=== PATIENT | female | born 1945 | race American Indian/Alaskan Native ===

== ENCOUNTER 2020-09-22 13:29 | Inpatient (IN) | payer OTHER ==
[2020-09-22] MEDS ORDERED: ACETAMINOPHEN 650 MG RECT SUPP PR ONE (13:35)
[2020-09-22] MEDS ORDERED: SODIUM CHLORIDE 0.9% 1000 ML 1,000 ML IV ONE ×3 (13:35→18:37)
--- NOTE | 2020-09-22 13:38 | Emergency Department Report ---
ED Fever HPI - General Stated Complaint: AMS/SEPSIS Time Seen by Provider: 09/22/20 13:33 Source: family, EMS, old records (none available) Exam Limitations: clinical condition - History of Present Illness Initial Comments: 75-year-old presents to the hospital with complaints of alteration in mental status and fever. Patient has a past medical history of dementia, hypertension, and also independent diabetes. She is from [facility] and [id number]. History of present illness obtained from family and EMS. Daughter states that patient was recently admitted to [facility] for 5 days for urinary retention, sepsis, and acute kidney injury. Patient had urine output after Pérez catheter placement into their knowledge kidney function had improved at time of discharge. She was discharged from [facility] 6 days ago without additional antibiotic and with Pérez catheter in place. She continues to have intermittent bloody urine output. She followed up with urology 3 days ago and has a scheduled follow-up for Pérez removal and additional bladder work-up. Patient also has been having intermittent vaginal bleeding and has been diagnosed with cervical polyp. She is scheduled for outpatient NUCLEAR REACTOR ENGINEER work-up. No complaints of heavy vaginal bleeding at this time. Patient was speaking upon waking up at about 9 AM. Upon recheck patient was not speaking but will squeeze her family members hands. EMS reports fever, tachycardia rate 116 on the monitor, and no signs of hypotension, room air saturation of 92% (supplemental oxygen in progress), and normal blood glucose level. No previous medical record for review. I Initially saw patient in triage and place orders while awaiting ED bed assignment. Family reports last Covid test was negative in July 2020 and she was not tested for Covid this month or during this recent admission. I received discharge summary and meds from patient and place her current medications in the computer ED Review of Systems ROS: Stated complaint: AMS/SEPSIS Other details as noted in HPI Comment: Unobtainable due to pts medical conditions ED Past Medical Hx - Past Medical History Hx Hypertension: Yes Hx Diabetes: Yes Hx Renal Disease: Yes (AKA status post urinary retention) Hx Dementia: Yes Additional medical history: Urinary retention, vaginal bleeding/cervical polyp - Medications Home Medications: Home Medications Medication Instructions Recorded Confirmed Last Taken Type Amlodipine Besylate [Norvasc] 2.5 mg PO DAILY 09/22/20 09/22/20 Unknown History Dok 100 mg PO DAILY PRN 09/22/20 09/22/20 Unknown History Melatonin 10MG CAP 1 tab PO QHS 09/22/20 09/22/20 Unknown History Vitamin D3 5,000 UNIT 1 tab PO DAILY 09/22/20 09/22/20 Unknown History metFORMIN 500 mg PO BID 09/22/20 09/22/20 Unknown History traZODone [Desyrel] 50 mg PO QHS 09/22/20 09/22/20 Unknown History ED Physical Exam - Other Other exam information: General: No acute distress Head: Atraumatic Eyes: normal appearance ENT: Dry mucous membranes Neck: Normal appearance, no midline tenderness Chest: Bilateral rhonchi CV: Tachycardic regular rhythm Abdomen: Soft, normal bowel sounds, nontender, nondistended, no rebound or guarding Back: Normal inspection Extremity: Normal inspection, full range of motion Neuro: Alert, , no facial asymmetry, speech clear, no gross motor sensory deficit Psych: Appropriate behavior Skin: No rash ED Course Vital Signs 09/22/20 09/22/20 14:30 15:49 Temperature 99.3 F Pulse Rate 87 84 Respiratory 16 16 Rate Blood Pressure 108/63 97/63 [Right] O2 Sat by Pulse 97 96 Oximetry ED Medical Decision Making - Lab Data Result diagrams: 09/22/20 13:45 09/22/20 13:45 Lab Results 09/22/20 09/22/20 09/22/20 Range/Units 13:45 13:45 13:45 WBC 9.8 (4.5-11.0) K/mm3 RBC 4.60 (3.65-5.03) M/mm3 Hgb 12.4 (10.1-14.3) gm/dl Hct 38.4 (30.3-42.9) % MCV 84 (79-97) fl MCH 27 L (28-32) pg MCHC 32 (30-34) % RDW 14.2 (13.2-15.2) % Plt Count 254 (140-440) K/mm3 Lymph % (Auto) 16.2 (13.4-35.0) % [place] % (Auto) 8.0 H (0.0-7.3) % Eos % (Auto) 0.1 (0.0-4.3) % Baso % (Auto) 0.5 (0.0-1.8) % Lymph # (Auto) 1.6 (1.2-5.4) K/mm3 [place] # (Auto) 0.8 (0.0-0.8) K/mm3 Eos # (Auto) 0.0 (0.0-0.4) K/mm3 Baso # (Auto) 0.0 (0.0-0.1) K/mm3 Seg Neutrophils % 75.2 H (40.0-70.0) % Seg Neutrophils # 7.4 (1.8-7.7) K/mm3 Sodium 150 H (137-145) mmol/L Potassium 3.9 (3.6-5.0) mmol/L Chloride 113.7 H (98-107) mmol/L Carbon Dioxide 25 (22-30) mmol/L Anion Gap 15 mmol/L BUN 21 H (7-17) mg/dL Creatinine 1.5 H (0.6-1.2) mg/dL Estimated GFR 41 ml/min BUN/Creatinine Ratio 14 % Glucose 128 H (65-100) mg/dL Lactic Acid 1.10 (0.7-2.0) mmol/L Calcium 8.4 (8.4-10.2) mg/dL Total Bilirubin 0.50 (0.1-1.2) mg/dL AST 16 (5-40) units/L ALT 19 (7-56) units/L Alkaline Phosphatase 50 (35-129) units/L Total Protein 6.1 L (6.3-8.2) g/dL Albumin 3.3 L (3.9-5) g/dL Albumin/Globulin Ratio 1.2 % TSH (0.270-4.200) mlU/mL Free T4 (0.76-1.46) ng/dL Urine Color (Yellow) Urine Turbidity (Clear) Urine pH (5.0-7.0) Ur Specific [place] (1.003-1.030) Urine Protein (Negative) mg/dL Urine Glucose (UA) (Negative) mg/dL Urine Ketones (Negative) mg/dL Urine Blood (Negative) Urine Nitrite (Negative) Urine Bilirubin (Negative) Urine Urobilinogen (<2.0) mg/dL Ur Leukocyte Esterase (Negative) Urine WBC (Auto) (0.0-6.0) /HPF Urine RBC (Auto) (0.0-6.0) /HPF U Epithel Cells (Auto) (0-13.0) /HPF Urine WBC Clumps /HPF Ur Renal Epithelial Cell /LPF Urine Mucus /HPF 09/22/20 09/22/20 Range/Units 13:45 15:20 WBC (4.5-11.0) K/mm3 RBC (3.65-5.03) M/mm3 Hgb (10.1-14.3) gm/dl Hct (30.3-42.9) % MCV (79-97) fl MCH (28-32) pg MCHC (30-34) % RDW (13.2-15.2) % Plt Count (140-440) K/mm3 Lymph % (Auto) (13.4-35.0) % [place] % (Auto) (0.0-7.3) % Eos % (Auto) (0.0-4.3) % Baso % (Auto) (0.0-1.8) % Lymph # (Auto) (1.2-5.4) K/mm3 [place] # (Auto) (0.0-0.8) K/mm3 Eos # (Auto) (0.0-0.4) K/mm3 Baso # (Auto) (0.0-0.1) K/mm3 Seg Neutrophils % (40.0-70.0) % Seg Neutrophils # (1.8-7.7) K/mm3 Sodium (137-145) mmol/L Potassium (3.6-5.0) mmol/L Chloride (98-107) mmol/L Carbon Dioxide (22-30) mmol/L Anion Gap mmol/L BUN (7-17) mg/dL Creatinine (0.6-1.2) mg/dL Estimated GFR ml/min BUN/Creatinine Ratio % Glucose (65-100) mg/dL Lactic Acid (0.7-2.0) mmol/L Calcium (8.4-10.2) mg/dL Total Bilirubin (0.1-1.2) mg/dL AST (5-40) units/L ALT (7-56) units/L Alkaline Phosphatase (35-129) units/L Total Protein (6.3-8.2) g/dL Albumin (3.9-5) g/dL Albumin/Globulin Ratio % TSH 0.711 (0.270-4.200) mlU/mL Free T4 1.06 (0.76-1.46) ng/dL Urine Color Yellow (Yellow) Urine Turbidity Cloudy (Clear) Urine pH 5.0 (5.0-7.0) Ur Specific [place] 1.011 (1.003-1.030) Urine Protein <15 mg/dl (Negative) mg/dL Urine Glucose (UA) Neg (Negative) mg/dL Urine Ketones Neg (Negative) mg/dL Urine Blood Mod (Negative) Urine Nitrite Neg (Negative) Urine Bilirubin Neg (Negative) Urine Urobilinogen < 2.0 (<2.0) mg/dL Ur Leukocyte Esterase Lg (Negative) Urine WBC (Auto) 68.0 H (0.0-6.0) /HPF Urine RBC (Auto) 16.0 (0.0-6.0) /HPF U Epithel Cells (Auto) < 1.0 (0-13.0) /HPF Urine WBC Clumps 3+ /HPF Ur Renal Epithelial Cell 1 /LPF Urine Mucus Few /HPF - EKG Data EKG shows normal: sinus rhythm, ST-T waves (no stemi) Rate: normal (79) - Radiology Data Radiology results: report reviewed CT head: Cerebral atrophy and microangiopathic changes. No acute findings Chest x-ray portable: No acute findings - Medical Decision Making 75-year-old female presents to the hospital febrile alteration mental status. Fever likely secondary to persistent UTI. Patient presented with indwelling Pérez catheter. Pérez catheter was exchanged for a new indwelling catheter and UA sent revealed active UTI. IV Rocephin ordered blood cultures pending. no signs of severe sepsis or septic shock at this time. Map remained >65 with no lactic acidosis. Patient also has clinical laboratory findings of dehydration and IV fluids were initiated. CT head and chest x-ray unremarkable. Patient to be admitted to the hospital service for further treatment. Critical Care Time: No Critical care attestation.: If time is entered above; I have spent that time in minutes in the direct care of this critically ill patient, excluding procedure time. ED Disposition Clinical Impression: Acute alteration in mental status, Fever, Sepsis, UTI (urinary tract infection), H/O urinary retention, Pérez catheter in place prior to arrival, Dementia, History of hypertension, History of diabetes mellitus Disposition: OP ADMIT IP TO THIS HOSP Is pt being admited?: Yes Condition: Stable Time of Disposition: 17:12 (Dr Murray/hosp)
[2020-09-22] MEDS ORDERED: ACETAMINOPHEN 325 MG RECT SUPP PR ONE (14:12)
--- NOTE | 2020-09-22 14:20 | Cat Scan Report ---
CT head/brain wo con INDICATION / CLINICAL INFORMATION: ams, fever. TECHNIQUE: All CT scans at this location are performed using CT dose reduction for ALARA by means of automated e xposure control. COMPARISON: None available. FINDINGS: Ventricle size is increased consistent with cerebral atrophy. Microangiopathic changes are also seen. No mass or mass effect is identified. There is no evidence of intracranial hemorrhage. No obvious ar ea of infarction is identified. Visualized paranasal sinuses are clear. IMPRESSION: Cerebral atrophy with microangiopathic changes. No acute findings Signer Name: Taras Lentz MD FACR Signed: 09/22/2020 2:15 PM Workstation Name: [id number]
--- NOTE | 2020-09-22 14:29 | XRay Report ---
CHEST 1 VIEW INDICATION / CLINICAL INFORMATION: sepsis, fever. COMPARISON: None available. FINDINGS: SUPPORT DEVICES: None. HEART / MEDIASTINUM: No significant abnormality. LUNGS / PLEURA: No significant pulmonary or pleural abnormality. No pneumothorax. ADDITIONAL FINDINGS: No significant additional findings. IMPRESSION: No acute pulmonary or pleural abnormality Signer Name: Taras Lentz MD FACR Signed: 09/22/2020 2:24 PM Workstation Name: [id number]
[2020-09-22 14:35] LABS: Albumin 3.3 g/dL (3.9-5); Calcium 8.4 mg/dL (8.4-10.2)
[2020-09-22 14:46] LABS: Free T4 (Free Thyroxine) 1.06 ng/dL (0.76-1.46)
[2020-09-22 14:57] LABS: Basophils % (Auto) 0.5 % (0.0-1.8); Eosinophils % (Auto) 0.1 % (0.0-4.3); Hematocrit 38.4 % (30.3-42.9); Hemoglobin 12.4 gm/dl (10.1-14.3); Lymphocytes # (Auto) 1.6 K/mm3 (1.2-5.4); Lymphocytes % (Auto) 16.2 % (13.4-35.0); Mean Corpuscular HGB Conc 32 % (30-34); Mean Corpuscular Volume 84 fl (79-97); Monocytes # (Auto) 0.8 K/mm3 (0.0-0.8); Platelet Count 254 K/mm3 (140-440); Red Cell Distribution Width 14.2 % (13.2-15.2)
[2020-09-22 16:20] LABS: Bilirubin,Urine NEG (Negative); Blood,Urine MOD (Negative); Color,Urine Yellow (Yellow); Mucus,Urine FEW /HPF; Protein,Urine <15 mg/dL mg/dL (Negative); Renal Epithelial Cells,Urine 1 /LPF; Urobilinogen,Urine < 2.0 mg/dL (<2.0)
[2020-09-22] MEDS ORDERED: cefTRIAXone/NS 1 GM/50 ML 1 GM/50 ML BAG IV ONE (17:00)
[2020-09-23] MEDS ORDERED: ONDANSETRON 4 MG/2 ML INJ IV PRN (00:06)
[2020-09-23] MEDS ORDERED: HYDROmorphone 1 MG/1 ML INJ IV PRN (00:06)
[2020-09-23] MEDS ORDERED: oxyCODONE /ACETAMINOPHEN 5-325MG TAB PO PRN (00:06)
[2020-09-23] MEDS ORDERED: ACETAMINOPHEN 325 MG TAB PO PRN (00:06)
[2020-09-23] MEDS ORDERED: SODIUM CHLORIDE 0.9% 1000 ML 1,000 ML IV SCH (00:15)
--- NOTE | 2020-09-23 00:17 | History and Physical Report ---
History of Present Illness Date of examination: 09/22/20 Date of admission: 09/22/20 17:13 Chief complaint: Fever and altered mental status for 1 day History of present illness: 75-year-old -[place] female with history of dementia, hypertension and type 2 diabetes brought in by EMS for altered sensorium and fever. Patient was recently admitted to [facility] for 5 days for urinary retention sepsis and acute kidney injury. Patient was treated for urinary tract infection and MATTHIAS and was discharged 6 days ago after full 5 days of admission. She followed up with urology 3 days ago and has a scheduled follow-up for Pérez removal. Patient also has been having intermittent vaginal bleeding and has been diagnosed with cervical polyp. She is scheduled for outpatient BOAT BUFFER PLASTIC work-up. No complaints of heavy vaginal bleeding at this time. Patient with altered sensorium since 9 AM this morning. Family reports last Covid test was negative in July 2020. Notes from [facility] was received and reviewed . - Past Medical History --Hypertension: Yes --Diabetes: Yes --Renal Disease: Yes - status post urinary retention) --Dementia: Yes Additional medical history: Urinary retention, vaginal bleeding/cervical polyp Past surgical history none Social history no smoking or alcohol - Medications Home Medications: Home Medications Medication Instructions Recorded Confirmed Last Taken Type Amlodipine Besylate [Norvasc] 2.5 mg PO DAILY 09/22/20 09/22/20 Unknown History Dok 100 mg PO DAILY PRN 09/22/20 09/22/20 Unknown History Melatonin 10MG CAP 1 tab PO QHS 09/22/20 09/22/20 Unknown History Vitamin D3 5,000 UNIT 1 tab PO DAILY 09/22/20 09/22/20 Unknown History metFORMIN 500 mg PO BID 09/22/20 09/22/20 Unknown History traZODone [Desyrel] 50 mg PO QHS 09/22/20 09/22/20 Unknown History Review of Systems ROS: Constitutional altered sensorium and fever HEENT no sore throat no post nasal drip no diplopia Neck no neck stiffness no lymph gland enlargement Chest and lungs no shortness of breath cough or wheezing CVS no chest pain no diaphoresis no palpitations GI no nausea no vomiting no diarrhea Genitourinary system no dysuria no flank pain Musculoskeletal system no muscle 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 Skin no rash no itching Psychiatric no depression no homicidal or suicidal tendencies Hematologic no lymphedema or bruising Endocrine no polydipsia no polyuria no cold intolerance no heat intolerance Medications and Allergies Allergies Allergy/AdvReac Type Severity Reaction Status Date / Time No Known Allergies Allergy Verified 09/22/20 14:15 Home Medications Medication Instructions Recorded Confirmed Last Taken Type Amlodipine Besylate [Norvasc] 2.5 mg PO DAILY 09/22/20 09/22/20 Unknown History Dok 100 mg PO DAILY PRN 09/22/20 09/22/20 Unknown History Melatonin 10MG CAP 1 tab PO QHS 09/22/20 09/22/20 Unknown History Vitamin D3 5,000 UNIT 1 tab PO DAILY 09/22/20 09/22/20 Unknown History metFORMIN 500 mg PO BID 09/22/20 09/22/20 Unknown History traZODone [Desyrel] 50 mg PO QHS 09/22/20 09/22/20 Unknown History Active Meds: Active Medications Sodium Chloride (Nacl 0.9% 1000 Ml) 1,000 mls @ 125 mls/hr IV ONCE ONE Stop: 09/23/20 02:36 Last Admin: 09/22/20 21:01 Dose: 125 mls/hr Documented by: Exam - Constitutional Vitals: Temp Pulse Resp BP Pulse Ox 98.7 F 69 20 136/77 99 09/22/20 19:40 09/22/20 19:40 09/22/20 19:40 09/22/20 19:40 09/22/20 19:40 General appearance: Present: no acute distress, well-nourished - EENT Eyes: Present: PERRL ENT: hearing intact, clear oral mucosa - Neck Neck: Present: supple, normal ROM - Respiratory Respiratory effort: normal Respiratory: bilateral: CTA - Cardiovascular Heart rate: 78 Rhythm: regular Heart Sounds: Present: S1 & S2. Absent: rub, click - Extremities Extremities: pulses symmetrical, No edema Peripheral Pulses: within normal limits - Abdominal General gastrointestinal: Present: soft, non-tender, non-distended, normal bowel sounds Female genitourinary: Present: normal - Integumentary Integumentary: Present: clear, warm, dry - Musculoskeletal Musculoskeletal: strength equal bilaterally, generalized weakness - Psychiatric Psychiatric: appropriate mood/affect, intact judgment & insight - Neurologic Neurologic: CNII-XII intact, moves all extremities, other (Altered sensorium and lethargic) HEART Score - HEART Score History: Slightly suspicious Age: > 65 Risk factors: 1-2 risk factors Troponin: < normal limit - Critical Actions Critical Actions: 0-3 pts:0.9-1.7%risk of adverse cardiac event.Candidate for discharge Results - Labs CBC & Chem 7: 09/22/20 13:45 09/22/20 13:45 Labs: Laboratory Last Values WBC 9.8 K/mm3 (4.5-11.0) 09/22/20 13:45 RBC 4.60 M/mm3 (3.65-5.03) 09/22/20 13:45 Hgb 12.4 gm/dl (10.1-14.3) 09/22/20 13:45 Hct 38.4 % (30.3-42.9) 09/22/20 13:45 MCV 84 fl (79-97) 09/22/20 13:45 MCH 27 pg (28-32) L 09/22/20 13:45 MCHC 32 % (30-34) 09/22/20 13:45 RDW 14.2 % (13.2-15.2) 09/22/20 13:45 Plt Count 254 K/mm3 (140-440) 09/22/20 13:45 Lymph % (Auto) 16.2 % (13.4-35.0) 09/22/20 13:45 [place] % (Auto) 8.0 % (0.0-7.3) H 09/22/20 13:45 Eos % (Auto) 0.1 % (0.0-4.3) 09/22/20 13:45 Baso % (Auto) 0.5 % (0.0-1.8) 09/22/20 13:45 Lymph # (Auto) 1.6 K/mm3 (1.2-5.4) 09/22/20 13:45 [place] # (Auto) 0.8 K/mm3 (0.0-0.8) 09/22/20 13:45 Eos # (Auto) 0.0 K/mm3 (0.0-0.4) 09/22/20 13:45 Baso # (Auto) 0.0 K/mm3 (0.0-0.1) 09/22/20 13:45 Seg Neutrophils % 75.2 % (40.0-70.0) H 09/22/20 13:45 Seg Neutrophils # 7.4 K/mm3 (1.8-7.7) 09/22/20 13:45 Sodium 150 mmol/L (137-145) H 09/22/20 13:45 Potassium 3.9 mmol/L (3.6-5.0) 09/22/20 13:45 Chloride 113.7 mmol/L (98-107) H 09/22/20 13:45 Carbon Dioxide 25 mmol/L (22-30) 09/22/20 13:45 Anion Gap 15 mmol/L 09/22/20 13:45 BUN 21 mg/dL (7-17) H 09/22/20 13:45 Creatinine 1.5 mg/dL (0.6-1.2) H 09/22/20 13:45 Estimated GFR 41 ml/min 09/22/20 13:45 BUN/Creatinine Ratio 14 % 09/22/20 13:45 Glucose 128 mg/dL (65-100) H 09/22/20 13:45 Lactic Acid 1.10 mmol/L (0.7-2.0) 09/22/20 16:19 Calcium 8.4 mg/dL (8.4-10.2) 09/22/20 13:45 Total Bilirubin 0.50 mg/dL (0.1-1.2) 09/22/20 13:45 AST 16 units/L (5-40) 09/22/20 13:45 ALT 19 units/L (7-56) 09/22/20 13:45 Alkaline Phosphatase 50 units/L (35-129) 09/22/20 13:45 Total Protein 6.1 g/dL (6.3-8.2) L 09/22/20 13:45 Albumin 3.3 g/dL (3.9-5) L 09/22/20 13:45 Albumin/Globulin Ratio 1.2 % 09/22/20 13:45 TSH 0.711 mlU/mL (0.270-4.200) 09/22/20 13:45 Free T4 1.06 ng/dL (0.76-1.46) 09/22/20 13:45 Urine Color Yellow (Yellow) 09/22/20 15:20 Urine Turbidity Cloudy (Clear) 09/22/20 15:20 Urine pH 5.0 (5.0-7.0) 09/22/20 15:20 Ur Specific [place] 1.011 (1.003-1.030) 09/22/20 15:20 Urine Protein <15 mg/dl mg/dL (Negative) 09/22/20 15:20 Urine Glucose (UA) Neg mg/dL (Negative) 09/22/20 15:20 Urine Ketones Neg mg/dL (Negative) 09/22/20 15:20 Urine Blood Mod (Negative) 09/22/20 15:20 Urine Nitrite Neg (Negative) 09/22/20 15:20 Urine Bilirubin Neg (Negative) 09/22/20 15:20 Urine Urobilinogen < 2.0 mg/dL (<2.0) 09/22/20 15:20 Ur Leukocyte Esterase Lg (Negative) 09/22/20 15:20 Urine WBC (Auto) 68.0 /HPF (0.0-6.0) H 09/22/20 15:20 Urine RBC (Auto) 16.0 /HPF (0.0-6.0) 09/22/20 15:20 U Epithel Cells (Auto) < 1.0 /HPF (0-13.0) 09/22/20 15:20 Urine WBC Clumps 3+ /HPF 09/22/20 15:20 Ur Renal Epithelial Cell 1 /LPF 09/22/20 15:20 Urine Mucus Few /HPF 09/22/20 15:20 Short CBC 09/22/20 Range/Units 13:45 WBC 9.8 (4.5-11.0) K/mm3 Hgb 12.4 (10.1-14.3) gm/dl Hct 38.4 (30.3-42.9) % Plt Count 254 (140-440) K/mm3 BMP 09/22/20 13:45 Sodium 150 H Potassium 3.9 Chloride 113.7 H Carbon Dioxide 25 BUN 21 H Creatinine 1.5 H Glucose 128 H Calcium 8.4 Liver Function 09/22/20 Range/Units 13:45 Total Bilirubin 0.50 (0.1-1.2) mg/dL AST 16 (5-40) units/L ALT 19 (7-56) units/L Alkaline Phosphatase 50 (35-129) units/L Albumin 3.3 L (3.9-5) g/dL Urine 09/22/20 Range/Units 15:20 Urine Color Yellow (Yellow) Urine pH 5.0 (5.0-7.0) Ur Specific [place] 1.011 (1.003-1.030) Urine Protein <15 mg/dl (Negative) mg/dL Urine Glucose (UA) Neg (Negative) mg/dL Microbiology: Microbiology 09/22/20 13:45 Peripheral/Venous Blood Culture - Preliminary Culture in Progress 09/22/20 13:45 Peripheral/Venous Blood Culture - Preliminary Culture in Progress - Imaging and Cardiology Chest x-ray: report reviewed (No acute findings) Pérez/IV: IV Catheter Type [Left Forearm Peripheral IV ] Assessment and Plan Advance Directives: Yes (Full code) VTE prophylaxis?: Chemical Plan of care discussed with patient/family: Yes - Patient Problems (1) Acute metabolic encephalopathy Current Visit: Yes Status: Acute Plan to address problem: Probably secondary to urinary tract infection and hypernatremia IV antibiotics and half-normal saline for now (2) UTI (urinary tract infection) Current Visit: Yes Status: Acute Qualifiers: Urinary tract infection type: acute cystitis Plan to address problem: Patient initiated on IV ceftriaxone pending urine cultures (3) Hypernatremia Current Visit: Yes Status: Acute Plan to address problem: Half-normal saline for now Secondary to dehydration (4) MATTHIAS (acute kidney injury) Current Visit: Yes Status: Acute Plan to address problem: Secondary to vasomotor nephropathy IV fluids for now (5) H/O urinary retention Current Visit: Yes Status: Acute Plan to address problem: Etiology unclear Urology consult requested (6) Dementia Current Visit: Yes Status: Chronic Qualifiers: Dementia type: Alzheimer's Plan to address problem: Supportive care (7) Malnutrition Current Visit: Yes Status: Chronic Qualifiers: Protein-calorie malnutrition severity: moderate Plan to address problem: Dietary supplements ordered (8) DVT prophylaxis Current Visit: Yes Status: Acute Plan to address problem: On heparin and GI prophylaxis
[2020-09-23] MEDS ORDERED: HEPARIN 5,000 UNIT/1 ML VIAL SUB-Q SCH (00:30)
[2020-09-23] MEDS ORDERED: SODIUM CHLORIDE 0.45% 500 ML IV SCH (01:00)
[2020-09-23 07:50] LABS: Basophils # (Auto) 0.1 K/mm3 (0.0-0.1); Basophils % (Auto) 0.5 % (0.0-1.8); Eosinophils # (Auto) 0.2 K/mm3 (0.0-0.4); Eosinophils % (Auto) 1.4 % (0.0-4.3); Hematocrit 36.3 % (30.3-42.9); Hemoglobin 11.5 gm/dl (10.1-14.3); Lymphocytes # (Auto) 2.8 K/mm3 (1.2-5.4); Lymphocytes % (Auto) 25.9 % (13.4-35.0); Mean Corpuscular HGB Conc 32 % (30-34); Mean Corpuscular Volume 84 fl (79-97); Monocytes % (Auto) 8.8 % (0.0-7.3); Platelet Count 226 K/mm3 (140-440); Red Blood Count 4.35 M/mm3 (3.65-5.03); Red Cell Distribution Width 14.3 % (13.2-15.2)
[2020-09-23 07:53] LABS: Alanine Aminotransferase 22 units/L (7-56); Albumin 2.9 g/dL (3.9-5); BUN/Creatinine Ratio 15; Blood Urea Nitrogen 15 mg/dL (7-17); Calcium 7.8 mg/dL (8.4-10.2); Hemolysis Index 7
--- NOTE | 2020-09-23 08:00 | Progress Note ---
Assessment and Plan Assessment and plan: 75-year-old -Surinamese female with history of dementia, hypertension and type 2 diabetes brought in by EMS for altered sensorium and fever. Patient was recently admitted to [facility] for 5 days for urinary retention sepsis and acute kidney injury. Patient was treated for urinary tract infection and MATTHIAS and was discharged 6 days ago after full 5 days of admission. She followed up with urology 3 days ago and has a scheduled follow-up for Murcia removal. Patient also has been having intermittent vaginal bleeding and has been diagnosed with cervical polyp. She is scheduled for outpatient PIE CRUST MIXER work-up. No complaints of heavy vaginal bleeding at this time. Patient with altered sensori um since 9 AM this morning. Family reports last Covid test was negative in July 2020. Notes from [facility] was received and reviewed CTAP: IMPRESSION: 1. Mild thickening of the renal collecting systems/ureters. No significant residual distention. 2. Murcia catheter decompresses the bladder which is unremarkable in appearance. CT HEAD: IMPRESSION: Cerebral atrophy with microangiopathic changes. No acute findings CXR: IMPRESSION: No acute pulmonary or pleural abnormality 2/: Await Urology input, PT/OT. Murcia changed in ED per staff. Aspiration precautions. Continue abx and murcia cultures. Anticipate discharge in 24-48hrs. Hypernatremia improving (1) Acute metabolic encephalopathy Current Visit: Yes Status: Acute Plan to address problem: Probably secondary to urinary tract infection and hypernatremia IV antibiotics and half-normal saline for now (2) UTI (urinary tract infection) Current Visit: Yes Status: Acute Qualifiers: Urinary tract infection type: acute cystitis Plan to address problem: Patient initiated on IV ceftriaxone pending urine cultures (3) Hypernatremia Current Visit: Yes Status: Acute Plan to address problem: Half-normal saline for now Secondary to dehydration (4) MATTHIAS (acute kidney injury) Current Visit: Yes Status: Acute Plan to address problem: Secondary to vasomotor nephropathy IV fluids for now (5) H/O urinary retention Current Visit: Yes Status: Acute Plan to address problem: Etiology unclear Urology consult requested (6) Dementia Current Visit: Yes Status: Chronic Qualifiers: Dementia type: Alzheimer's Plan to address problem: Supportive care (7) Malnutrition Current Visit: Yes Status: Chronic Qualifiers: Protein-calorie malnutrition severity: moderate Plan to address problem: Dietary supplements ordered (8) Vaginal bleeding--secondary to cervical polyp--- inactive now--request PIE CRUST MIXER consult if bleeding is active (9) DVT prophylaxis Current Visit: Yes Status: Acute Plan to address problem: On heparin and GI prophylaxis History Interval history: Patient seen and examined answers a few questions to me but language barrier persist. Discussed with nursing staff.I have requested to come stay and help assist with translation as patient's dialect is not in a language line this has been reviewed by administration. According to report patient is ambulatory but needs assistance with feeding and does not have any oxygen needs. Fever and altered mental status for 1 day Hospitalist Physical - Physical exam Narrative exam: General appearance: Present: no acute distress, well-nourished - EENT Eyes: Present: PERRL ENT: hearing intact, clear oral mucosa - Neck Neck: Present: supple, normal ROM - Respiratory Respiratory effort: normal Respiratory: bilateral: CTA - Cardiovascular Heart rate: 78 Rhythm: regular Heart Sounds: Present: S1 & S2. Absent: rub, click - Extremities Extremities: pulses symmetrical, No edema Peripheral Pulses: within normal limits - Abdominal General gastrointestinal: Present: soft, non-tender, non-distended, normal bowel sounds Female genitourinary: Present: normal - Integumentary Integumentary: Present: clear, warm, dry - Musculoskeletal Musculoskeletal: strength equal bilaterally, generalized weakness - Psychiatric Psychiatric: appropriate mood/affect, intact judgment & insight - Neurologic Neurologic: CNII-XII intact, moves all extremities, other (Altered sensorium and lethargic) - Constitutional Vitals: Temp Pulse Resp BP Pulse Ox 97.4 F L 64 16 140/79 100 09/23/20 04:46 09/23/20 04:46 09/23/20 04:46 09/23/20 04:46 09/23/20 04:46 General appearance: Present: no acute distress, well-nourished HEART Score - HEART Score Age: > 65 Risk factors: 1-2 risk factors Troponin: < normal limit - Critical Actions Critical Actions: 0-3 pts:0.9-1.7%risk of adverse cardiac event.Candidate for discharge Results - Labs CBC & Chem 7: 09/23/20 06:10 09/23/20 06:10 Labs: Laboratory Last Values WBC 10.9 K/mm3 (4.5-11.0) 09/23/20 06:10 RBC 4.35 M/mm3 (3.65-5.03) 09/23/20 06:10 Hgb 11.5 gm/dl (10.1-14.3) 09/23/20 06:10 Hct 36.3 % (30.3-42.9) 09/23/20 06:10 MCV 84 fl (79-97) 09/23/20 06:10 MCH 26 pg (28-32) L 09/23/20 06:10 MCHC 32 % (30-34) 09/23/20 06:10 RDW 14.3 % (13.2-15.2) 09/23/20 06:10 Plt Count 226 K/mm3 (140-440) 09/23/20 06:10 Lymph % (Auto) 25.9 % (13.4-35.0) 09/23/20 06:10 [place] % (Auto) 8.8 % (0.0-7.3) H 09/23/20 06:10 Eos % (Auto) 1.4 % (0.0-4.3) 09/23/20 06:10 Baso % (Auto) 0.5 % (0.0-1.8) 09/23/20 06:10 Lymph # (Auto) 2.8 K/mm3 (1.2-5.4) 09/23/20 06:10 [place] # (Auto) 1.0 K/mm3 (0.0-0.8) H 09/23/20 06:10 Eos # (Auto) 0.2 K/mm3 (0.0-0.4) 09/23/20 06:10 Baso # (Auto) 0.1 K/mm3 (0.0-0.1) 09/23/20 06:10 Seg Neutrophils % 63.4 % (40.0-70.0) 09/23/20 06:10 Seg Neutrophils # 6.9 K/mm3 (1.8-7.7) 09/23/20 06:10 Sodium 149 mmol/L (137-145) H 09/23/20 06:10 Potassium 4.2 mmol/L (3.6-5.0) 09/23/20 06:10 Chloride 116.0 mmol/L (98-107) H 09/23/20 06:10 Carbon Dioxide 27 mmol/L (22-30) 09/23/20 06:10 Anion Gap 10 mmol/L 09/23/20 06:10 BUN 15 mg/dL (7-17) 09/23/20 06:10 Creatinine 1.0 mg/dL (0.6-1.2) 09/23/20 06:10 Estimated GFR > 60 ml/min 09/23/20 06:10 BUN/Creatinine Ratio 15 % 09/23/20 06:10 Glucose 111 mg/dL (65-100) H 09/23/20 06:10 Hemoglobin A1c 6.5 % (4-6) H 09/23/20 06:10 Lactic Acid 1.10 mmol/L (0.7-2.0) 09/22/20 16:19 Calcium 7.8 mg/dL (8.4-10.2) L 09/23/20 06:10 Total Bilirubin 0.50 mg/dL (0.1-1.2) 09/23/20 06:10 AST 20 units/L (5-40) 09/23/20 06:10 ALT 22 units/L (7-56) 09/23/20 06:10 Alkaline Phosphatase 42 units/L (35-129) 09/23/20 06:10 Total Protein 6.0 g/dL (6.3-8.2) L 09/23/20 06:10 Albumin 2.9 g/dL (3.9-5) L 09/23/20 06:10 Albumin/Globulin Ratio 0.9 % 09/23/20 06:10 TSH 0.711 mlU/mL (0.270-4.200) 09/22/20 13:45 Free T4 1.06 ng/dL (0.76-1.46) 09/22/20 13:45 Urine Color Yellow (Yellow) 09/22/20 15:20 Urine Turbidity Cloudy (Clear) 09/22/20 15:20 Urine pH 5.0 (5.0-7.0) 09/22/20 15:20 Ur Specific [place] 1.011 (1.003-1.030) 09/22/20 15:20 Urine Protein <15 mg/dl mg/dL (Negative) 09/22/20 15:20 Urine Glucose (UA) Neg mg/dL (Negative) 09/22/20 15:20 Urine Ketones Neg mg/dL (Negative) 09/22/20 15:20 Urine Blood Mod (Negative) 09/22/20 15:20 Urine Nitrite Neg (Negative) 09/22/20 15:20 Urine Bilirubin Neg (Negative) 09/22/20 15:20 Urine Urobilinogen < 2.0 mg/dL (<2.0) 09/22/20 15:20 Ur Leukocyte Esterase Lg (Negative) 09/22/20 15:20 Urine WBC (Auto) 68.0 /HPF (0.0-6.0) H 09/22/20 15:20 Urine RBC (Auto) 16.0 /HPF (0.0-6.0) 09/22/20 15:20 U Epithel Cells (Auto) < 1.0 /HPF (0-13.0) 09/22/20 15:20 Urine WBC Clumps 3+ /HPF 09/22/20 15:20 Ur Renal Epithelial Cell 1 /LPF 09/22/20 15:20 Urine Mucus Few /HPF 09/22/20 15:20 Microbiology: Microbiology 09/22/20 13:45 Peripheral/Venous Blood Culture - Preliminary Culture in Progress 09/22/20 13:45 Peripheral/Venous Blood Culture - Preliminary Culture in Progress Murcia/IV: Voiding Method Indwelling Catheter IV Catheter Type [Left Forearm Peripheral IV ] Active Medications - Current Medications Current Medications: Generic Name Dose Route Start Last Admin Trade Name Freq PRN Reason Stop Dose Admin Acetaminophen 650 mg 09/23/20 00:06 Acetaminophen 325 Mg Tab PO Q4H PRN Pain MILD(1-3)/Fever >100.5/MALDONADO Amlodipine Besylate 2.5 mg 09/23/20 10:00 Amlodipine 5 Mg Tab PO DAILY VIC Cholecalciferol 5,000 unit 09/23/20 10:00 Cholecalciferol (Vit D3) 5,000 Unit Tab PO DAILY VIC Famotidine 20 mg 09/23/20 10:00 Famotidine 20 Mg/2 Ml Inj IV DAILY VIC Heparin Sodium (Porcine) 5,000 unit 09/23/20 10:00 Heparin 5,000 Unit/1 Ml Vial SUB-Q Q12HR VIC Hydromorphone HCl 0.5 mg 09/23/20 00:06 Hydromorphone 1 Mg/1 Ml Inj IV Q3H PRN Pain , Severe (7-10) Ceftriaxone Sodium 2 gm in 100 mls @ 200 mls/hr 09/23/20 10:00 Rocephin/Ns 2 Gm/100 Ml IV Q24HR [facility] Protocol Sodium Chloride 500 mls @ 100 mls/hr 09/23/20 01:00 09/23/20 01:21 Nacl 0.45% IV 100 mls/hr DIRECT VIC Administration Insulin Human Lispro 0 unit 09/23/20 07:30 Insulin Lispro 100 Unit/Ml SUB-Q ACHS [facility] Protocol Ondansetron HCl 4 mg 09/23/20 00:06 Ondansetron 4 Mg/2 Ml Inj IV Q8H PRN Nausea And Vomiting Oxycodone/Acetaminophen 1 tab 09/23/20 00:06 Oxycodone /Acetaminophen 5-325mg Tab PO Q6H PRN Pain, Moderate (4-6) Sodium Chloride 10 ml 09/23/20 10:00 Sodium Chloride 0.9% 10 Ml Flush Syringe IV BID VIC Sodium Chloride 10 ml 09/23/20 00:06 Sodium Chloride 0.9% 10 Ml Flush Syringe IV PRN PRN LINE FLUSH Trazodone HCl 50 mg 09/23/20 22:00 Trazodone 50 Mg Tab PO QHS VIC
[2020-09-23] MEDS: INSULIN LISPRO 100 UNIT/ML SUB-Q SCH ×3 (08:18→22:28)
--- NOTE | 2020-09-23 09:07 | Cat Scan Report ---
CT abdomen pelvis wo con INDICATION: Urinary retention. TECHNIQUE: All CT scans at this location are performed using the following dose modulation technique: Automated exposure control. CONTRAST: None. COMPARISON: None available. CT ABDOMEN: The parenchymal organs are unremarkable in appearance other than mild thickening of the u reters and renal collecting systems. Negative for abdominal mass, fluid or inflammation. The bowel is not dilated or thickened. CT PELVIS: Mild thickening is seen at the ureters. Negative for active obstruction. The bladder has b een decompressed by Pérez catheter. Negative for pelvic mass, fluid or inflammation. IMPRESSION: 1. Mild thickening of the renal collecting systems/ureters. No significant residual distention. 2. Pérez catheter decompresses the bladder which is unremarkable in appearance. Signer Name: Angel Schilling MD Signed: 09/23/2020 9:03 AM Workstation Name: [id number]
[2020-09-23] MEDS ORDERED: FAMOTIDINE 20 MG/2 ML INJ IV SCH ×2 (10:00)
[2020-09-23] MEDS ORDERED: VITAMIN D3 5000 UNIT PO SCH (10:00)
[2020-09-23] MEDS ORDERED: NON-FORMULARY EACH (Amlodipine Besylate [Norvasc] 2.5 MG Tablet) PO SCH (10:00)
[2020-09-23] MEDS: HEPARIN 5,000 UNIT/1 ML VIAL SUB-Q SCH ×2 (11:00→22:27)
[2020-09-23] MEDS: amLODIPine 5 MG TAB PO SCH (11:01)
[2020-09-23] MEDS: cefTRIAXone/NS 2 GM/100 ML 2 GM/100 ML BAG IV SCH (11:03)
[2020-09-23] MEDS: CHOLECALCIFEROL (VIT D3) 5,000 UNIT TAB PO SCH ×2 (11:06→11:18)
--- NOTE | 2020-09-23 12:20 | Consultation ---
History of Present Illness - Reason for Consult Consult date: 09/23/20 - History of Present Illness 75-year-old -[place] Citizen female with history of dementia, hypertension and type 2 diabetes brought in by EMS for altered sensorium and fever. Patient was recently admitted to [facility] for 5 days for urinary retention sepsis and acute kidney injury. Patient was treated for urinary tract infection and MATTHIAS and was discharged 6 days ago after full 5 days of admission. She followed up with urology 3 days ago and has a scheduled follow-up for Choi removal. Patient also has been having intermittent vaginal bleeding and has been diagnosed with cervical polyp. She is scheduled for outpatient HAND WASHER work-up. No complaints of heavy vaginal bleeding at this time. Patient with altered sensorium since 9 AM this morning. Family reports last Covid test was negative in July 2020. Notes from [facility] was received and reviewed. CTAP - MILD THICKENING OF BLADDER & URETER ABD SOFT CHOI CLEAR URINE Cr - SLIGHTLY HIGH----1.5 A/P NEW TO OUR SERVICE NO ACTURE HOME WITH CHOI WHEN STABLE F/U WITH PRIMARY UROLOGIST Medications and Allergies Allergies Allergy/AdvReac Type Severity Reaction Status Date / Time No Known Allergies Allergy Verified 09/22/20 14:15 Home Medications Medication Instructions Recorded Confirmed Last Taken Type Amlodipine Besylate [Norvasc] 2.5 mg PO DAILY 09/22/20 09/22/20 Unknown History Dok 100 mg PO DAILY PRN 09/22/20 09/22/20 Unknown History Melatonin 10MG CAP 1 tab PO QHS 09/22/20 09/22/20 Unknown History Vitamin D3 5,000 UNIT 1 tab PO DAILY 09/22/20 09/22/20 Unknown History metFORMIN 500 mg PO BID 09/22/20 09/22/20 Unknown History traZODone [Desyrel] 50 mg PO QHS 09/22/20 09/22/20 Unknown History Active Meds: Active Medications Acetaminophen (Acetaminophen 325 Mg Tab) 650 mg PO Q4H PRN PRN Reason: Pain MILD(1-3)/Fever >100.5/MALDONADO Amlodipine Besylate (Amlodipine 5 Mg Tab) 2.5 mg PO DAILY VIC Last Admin: 09/23/20 11:01 Dose: 2.5 mg Documented by: Cholecalciferol (Cholecalciferol (Vit D3) 5,000 Unit Tab) 5,000 unit PO DAILY [facility] Last Admin: 09/23/20 11:18 Dose: 5,000 unit Documented by: Famotidine (Famotidine 20 Mg/2 Ml Inj) 20 mg IV DAILY [facility] Last Admin: 09/23/20 11:01 Dose: 20 mg Documented by: Heparin Sodium (Porcine) (Heparin 5,000 Unit/1 Ml Vial) 5,000 unit SUB-Q Q12HR [facility] Last Admin: 09/23/20 11:00 Dose: 5,000 unit Documented by: Hydromorphone HCl (Hydromorphone 1 Mg/1 Ml Inj) 0.5 mg IV Q3H PRN PRN Reason: Pain , Severe (7-10) Ceftriaxone Sodium (Rocephin/Ns 2 Gm/100 Ml) 2 gm in 100 mls @ 200 mls/hr IV Q24HR [facility]; Protocol Last Admin: 09/23/20 11:03 Dose: 200 mls/hr Documented by: Sodium Chloride (Nacl 0.45%) 500 mls @ 100 mls/hr IV DIRECT [facility] Last Admin: 09/23/20 01:21 Dose: 100 mls/hr Documented by: Insulin Human Lispro (Insulin Lispro 100 Unit/Ml) 0 unit SUB-Q ACHS [facility]; Protocol Last Admin: 09/23/20 08:18 Dose: Not Given Documented by: Ondansetron HCl (Ondansetron 4 Mg/2 Ml Inj) 4 mg IV Q8H PRN PRN Reason: Nausea And Vomiting Oxycodone/Acetaminophen (Oxycodone /Acetaminophen 5-325mg Tab) 1 tab PO Q6H PRN PRN Reason: Pain, Moderate (4-6) Sodium Chloride (Sodium Chloride 0.9% 10 Ml Flush Syringe) 10 ml IV BID [facility] Last Admin: 09/23/20 11:04 Dose: 10 ml Documented by: Sodium Chloride (Sodium Chloride 0.9% 10 Ml Flush Syringe) 10 ml IV PRN PRN PRN Reason: LINE FLUSH Trazodone HCl (Trazodone 50 Mg Tab) 50 mg PO QHS [facility] Exam - Constitutional Vitals: Temp Pulse Resp BP Pulse Ox 98.2 F 61 18 142/81 100 09/23/20 08:06 09/23/20 11:00 09/23/20 08:06 09/23/20 08:06 09/23/20 08:06 Results - Labs CBC & Chem 7: 09/23/20 06:10 09/23/20 06:10 Labs: Abnormal lab results 09/22/20 09/22/20 09/22/20 Range/Units 13:45 13:45 15:20 MCH 27 L (28-32) pg [place] % (Auto) 8.0 H (0.0-7.3) % [place] # (Auto) (0.0-0.8) K/mm3 Seg Neutrophils % 75.2 H (40.0-70.0) % Sodium 150 H (137-145) mmol/L Chloride 113.7 H (98-107) mmol/L BUN 21 H (7-17) mg/dL Creatinine 1.5 H (0.6-1.2) mg/dL Glucose 128 H (65-100) mg/dL POC Glucose (70-105) mg/dL Hemoglobin A1c (4-6) % Calcium (8.4-10.2) mg/dL Total Protein 6.1 L (6.3-8.2) g/dL Albumin 3.3 L (3.9-5) g/dL Urine WBC (Auto) 68.0 H (0.0-6.0) /HPF 09/23/20 09/23/20 09/23/20 Range/Units 06:10 06:10 06:10 MCH 26 L (28-32) pg [place] % (Auto) 8.8 H (0.0-7.3) % [place] # (Auto) 1.0 H (0.0-0.8) K/mm3 Seg Neutrophils % (40.0-70.0) % Sodium 149 H (137-145) mmol/L Chloride 116.0 H (98-107) mmol/L BUN (7-17) mg/dL Creatinine (0.6-1.2) mg/dL Glucose 111 H (65-100) mg/dL POC Glucose (70-105) mg/dL Hemoglobin A1c 6.5 H (4-6) % Calcium 7.8 L (8.4-10.2) mg/dL Total Protein 6.0 L (6.3-8.2) g/dL Albumin 2.9 L (3.9-5) g/dL Urine WBC (Auto) (0.0-6.0) /HPF 09/23/20 Range/Units 11:47 MCH (28-32) pg [place] % (Auto) (0.0-7.3) % [place] # (Auto) (0.0-0.8) K/mm3 Seg Neutrophils % (40.0-70.0) % Sodium (137-145) mmol/L Chloride (98-107) mmol/L BUN (7-17) mg/dL Creatinine (0.6-1.2) mg/dL Glucose (65-100) mg/dL POC Glucose 107 H (70-105) mg/dL Hemoglobin A1c (4-6) % Calcium (8.4-10.2) mg/dL Total Protein (6.3-8.2) g/dL Albumin (3.9-5) g/dL Urine WBC (Auto) (0.0-6.0) /HPF
[2020-09-23] MEDS ORDERED: traZODone 50 MG TAB PO SCH (22:00)
[2020-09-24 07:52] LABS: Basophils # (Auto) 0.1 K/mm3 (0.0-0.1); Eosinophils # (Auto) 0.3 K/mm3 (0.0-0.4); Eosinophils % (Auto) 2.3 % (0.0-4.3); Hematocrit 37.1 % (30.3-42.9); Hemoglobin 12.3 gm/dl (10.1-14.3); Lymphocytes % (Auto) 24.9 % (13.4-35.0); Mean Corpuscular HGB Conc 33 % (30-34); Mean Corpuscular Volume 80 fl (79-97); Monocytes # (Auto) 1.1 K/mm3 (0.0-0.8); Monocytes % (Auto) 9.1 % (0.0-7.3); Red Blood Count 4.64 M/mm3 (3.65-5.03); Red Cell Distribution Width 13.4 % (13.2-15.2)
[2020-09-24 07:55] LABS: Platelet Count 186 K/mm3 (140-440)
[2020-09-24 08:11] LABS: Alanine Aminotransferase 24 units/L (7-56); Albumin 3.5 g/dL (3.9-5); BUN/Creatinine Ratio 10; Blood Urea Nitrogen 10 mg/dL (7-17); Calcium 8.9 mg/dL (8.4-10.2); Hemolysis Index 30
[2020-09-24 08:50] VITALS: BP 155/84
[2020-09-24] MEDS: CHOLECALCIFEROL (VIT D3) 5,000 UNIT TAB PO SCH (09:15)
[2020-09-24] MEDS: cefTRIAXone/NS 2 GM/100 ML 2 GM/100 ML BAG IV SCH (09:15)
[2020-09-24] MEDS: INSULIN LISPRO 100 UNIT/ML SUB-Q SCH (09:16)
[2020-09-24] MEDS: amLODIPine 5 MG TAB PO SCH (09:16)
[2020-09-24] MEDS: HEPARIN 5,000 UNIT/1 ML VIAL SUB-Q SCH (09:17)
--- NOTE | 2020-09-24 09:39 | Discharge Summary ---
Providers - Providers Date of Admission: 09/22/20 17:13 Attending physician: YINA MAYO MD 09/23/20 07:44 Consult to Physician [CONS] Routine Comment: Consulting Provider: PAULINE BERKOWITZ Physician Instructions: Reason For Exam: Urinary retention Primary care physician: FIBER LOCKING SUPERVISOR Hospitalization Condition: Stable Hospital course: 75-year-old -[place] female with history of dementia, hypertension and type 2 diabetes brought in by EMS for altered sensorium and fever. Patient was recently admitted to [facility] for 5 days for urinary retention sepsis and acute kidney injury. Patient was treated for urinary tract infection and MATTHIAS and was discharged 6 days ago after full 5 days of admission. She followed up with urology 3 days ago and has a scheduled follow-up for Murcia removal. Patient also has been having intermittent vaginal bleeding and has been diagnosed with cervical polyp. She is scheduled for outpatient HUMAN RESOURCES COORDINATOR work-up. No complaints of heavy vaginal bleeding at this time. Patient with altered sensorium since 9 AM this morning. Family reports last Covid test was negative in July 2020. Notes from [facility] was received and reviewed CTAP: IMPRESSION: 1. Mild thickening of the renal collecting systems/ureters. No significant residual distention. 2. Murcia catheter decompresses the bladder which is unremarkable in appearance. CT HEAD: IMPRESSION: Cerebral atrophy with microangiopathic changes. No acute findings CXR: IMPRESSION: No acute pulmonary or pleural abnormality 2/1: Await Urology input, PT/OT. Murcia changed in ED per staff. Aspiration precautions. Continue abx and murcia cultures. Anticipate discharge in 24-48hrs. Hypernatremia improving 2/2: Patient to continue with murcia to leg bag. Daughter at bedside states patient is at baseline dementia clinical status Plan of care discussed in detail Renal function improved (1) Acute metabolic encephalopathy Current Visit: Yes Status: Acute Plan to address problem: Probably secondary to urinary tract infection and hypernatremia IV antibiotics and half-normal saline for now (2) UTI (urinary tract infection) without sepsis Current Visit: Yes Status: Acute Qualifiers: Urinary tract infection type: acute cystitis Plan to address problem: Patient initiated on IV ceftriaxone pending urine cultures (3) Hypernatremia Current Visit: Yes Status: Acute Plan to address problem: Half-normal saline for now Secondary to dehydration (4) MATTHIAS (acute kidney injury) Current Visit: Yes Status: Acute Plan to address problem: Secondary to vasomotor nephropathy IV fluids for now (5) H/O urinary retention Current Visit: Yes Status: Acute Plan to address problem: Etiology unclear Urology consult requested (6) Dementia Current Visit: Yes Status: Chronic Qualifiers: Dementia type: Alzheimer's Plan to address problem: Supportive care (7) Malnutrition Current Visit: Yes Status: Chronic Qualifiers: Protein-calorie malnutrition severity: moderate Plan to address problem: Dietary supplements ordered (8) Vaginal bleeding--secondary to cervical polyp--- inactive now--request HUMAN RESOURCES COORDINATOR consult if bleeding is active (9) SIRS Disposition: DC-01 TO HOME OR SELFCARE Time spent for discharge: 35 mins Core Measure Documentation - Palliative Care Palliative Care/ Comfort Measures: Not Applicable Exam - Constitutional Vitals: Temp Pulse Resp BP Pulse Ox 98.6 F 60 18 155/84 94 09/24/20 08:49 09/24/20 04:14 09/24/20 08:49 09/24/20 08:49 09/24/20 04:14 Plan Activity: advance as tolerated, fall precautions Diet: low fat Special Instructions: record daily weights, record daily BP diary Additional Instructions: follow up with primary urologist and OBGYN as already planned Follow up with: PRIMARY CARE, [Primary Care Provider] - 7 Days Prescriptions: Docusate Sodium [Colace] 100 mg PO BID #60 capsule cephALEXin [Keflex] 500 mg PO Q12HR #9 cap Psyllium Husk/Aspartame [Metamucil Fiber Singles Packet] 3.4 gm PO DAILY #30 powd.pack Famotidine [Pepcid] 20 mg PO DAILY #30 tablet
[2020-09-24] MEDS ORDERED: cephALEXin 500 MG CAP PO SCH (10:00)
[2020-09-24] MEDS ORDERED: FAMOTIDINE 20 MG TAB PO SCH (10:00)
== END 2020-09-24 13:25 | disposition home or self-care (01) | DRG 871 ==
LOC: ED 13:29 → 4A 17:13
PROVIDERS: ADMIT Internal Medicine; ATTEND Internal Medicine
DX: A41.9 Sepsis, unspecified organism (principal); N17.0 Acute kidney failure with tubular necrosis; G93.41 Metabolic encephalopathy; N39.0 Urinary tract infection, site not specified; E87.0 Hyperosmolality and hypernatremia; E44.0 Moderate protein-calorie malnutrition; N84.1 Polyp of cervix uteri; N93.9 Abnormal uterine and vaginal bleeding, unspecified; R41.82 Altered mental status, unspecified; E86.0 Dehydration; F03.90 Unspecified dementia, unspecified severity, without behavioral disturbance, psychotic disturbance, mood disturbance, and anxiety; I10 Essential (primary) hypertension; E11.9 Type 2 diabetes mellitus without complications; Z79.899 Other long term (current) drug therapy; Z79.891 Long term (current) use of opiate analgesic; Z79.01 Long term (current) use of anticoagulants; Z79.84 Long term (current) use of oral hypoglycemic drugs; Z68.27 Body mass index [BMI] 27.0-27.9, adult
CPT/HCPCS: 36415; 70450; 71045; 74176; 80053; 81001; 82140; 82962; 83036; 84439; 84443; 85025; 87040; 87086; 93005; 96365; 96375; G0378; J0696; J1644; J7030